=== PATIENT | female | born 1985 | race Caucasian/White ===

== ENCOUNTER 2016-04-22 06:30 | Emergency (ER) | payer SELFPAY ==
[~2016-04-22] VITALS: Ht 154.9 cm; Wt 105.0 kg
[~2016-04-22 06:30] MED LIST: ALBU8.5H3 IH; HYDR-3965 PO; IBUP-1546 PO
[2016-04-22] MEDS ORDERED: CETI-260 PO (06:54)
[2016-04-22] MEDS ORDERED: DIPH50 PO (06:54)
[2016-04-22] MEDS ORDERED: PredniSONE 20 MG TABLET PO ONE (07:45)
[2016-04-22] MEDS ORDERED: DiphenhydrAMINE HCL 50 MG/ML VIAL IM ONE (07:45)
[2016-04-22 08:30] VITALS: BP 122/79
== END 2016-04-22 08:59 | disposition home or self-care (01) ==
LOC: EMS 06:32
DX: T78.40XA Allergy, unspecified, initial encounter (principal); L73.9 Follicular disorder, unspecified; J45.909 Unspecified asthma, uncomplicated; Z91.013 Allergy to seafood; Z91.018 Allergy to other foods; Z88.1 Allergy status to other antibiotic agents; Z88.8 Allergy status to other drugs, medicaments and biological substances; X58.XXXA Exposure to other specified factors, initial encounter
CPT/HCPCS: 96372; 99283; J1200; J7512

== ENCOUNTER 2016-07-21 07:38 | Emergency (ER) | payer SELFPAY ==
[~2016-07-21] VITALS: Ht 154.9 cm; Wt 98.6 kg
[~2016-07-21 07:38] MED LIST changes: +CETI-260 PO; +DIPH50 PO; -HYDR-3965 PO; -IBUP-1546 PO
[2016-07-21] MEDS ORDERED: HYDR-3112 PO (07:51)
[2016-07-21 10:00] VITALS: BP 117/80
== END 2016-07-21 10:06 | disposition home or self-care (01) ==
LOC: EMS 07:39
DX: H10.32 Unspecified acute conjunctivitis, left eye (principal); J45.909 Unspecified asthma, uncomplicated; Z88.1 Allergy status to other antibiotic agents; Z88.5 Allergy status to narcotic agent; Z91.013 Allergy to seafood; Z91.018 Allergy to other foods
CPT/HCPCS: 99281; 99283

== ENCOUNTER 2018-07-09 00:19 | Emergency (ER) | payer OTHER ==
[~2018-07-09 00:19] MED LIST changes: -CETI-260 PO; +CETI10TA59 PO; +HYDR-3112 PO
== END 2018-07-09 00:44 | disposition left against medical advice (07) ==
LOC: EMS 00:22
DX: Z53.21 Procedure and treatment not carried out due to patient leaving prior to being seen by health care provider (principal)